=== PATIENT | female | born 1930 | race Caucasian/White ===

== ENCOUNTER 2016-10-17 09:49 | Emergency (ER) | payer MEDICARE, OTHER ==
[2016-10-17] MEDS ORDERED: Sodium Chloride 0.9% 2.5 ML Syringe FLUSH PRN (10:02)
[2016-10-17] MEDS ORDERED: Sodium Chloride 0.9% 10 ML Syringe FLUSH PRN (10:02)
[2016-10-17] MEDS ORDERED: Sodium Chloride 0.9% 1,000 ML IV ONE (10:02)
--- NOTE | 2016-10-17 10:15 | EDM.PDOC ---
ED HISTORY OF PRESENT ILLNESS - General Chief Complaint: Cardiovascular Problem Stated Complaint: UNK Time Seen by Provider: 10/17/16 09:49 - History of Present Illness INITIAL COMMENTS - FREE TEXT/NARRATIVE: HISTORY AND PHYSICAL: History of present illness: The patient is 86-year-old female who lives at home with her son and has a history of diabetes insulin requiring, hypertension hypercholesterolemia and a valve replacement who was found by her son approximately one hour before calling the ambulance with respiratory distress and decreased level of consciousness. This incision a normal day yesterday per her and had no systemic complaints and was fine this morning when he last saw her when he came home he noticed that she was unresponsive. She had no trauma and he called EMS. EMS brought her here emergently and was bagging her on arrival. The patient is unable to offer any history and is unresponsive to voice and painful stimuli. Review of systems: As per history of present illness and below otherwise all systems reviewed and negative. Past medical history: As per history of present illness and as reviewed below otherwise noncontributory. Surgical history: As per history of present illness and as reviewed below otherwise noncontributory. Social history: No reported history of drug or alcohol abuse. Family history: As per history of present illness and as reviewed below otherwise noncontributory. Physical exam: General: Well-developed well-nourished female was unresponsive and vital signs were noted by me. She is not responding to painful stimuli or voice and is only moving her left great toe and her left hand spontaneously and that is just wiggling the fingers and the toe. She is noted to be very hypertensive on arrival HEENT: Atraumatic, normocephalic, are deviated to the left and are relatively sluggish to nonreactive and her mid range,, negative for conjunctival pallor or scleral icterus, mucous membranes moist, throat clear, neck supple, nontender, trachea midline. Lungs: Clear to auscultation with spontaneous breathing but no gag reflex and there are coarse breath sounds bilaterally, there is a well-healed midline midsternotomy incision, breath sounds equal bilaterally, chest nontender. Heart: S1S2, regular, negative for clicks, rubs, or JVD. Abdomen: Soft, nondistended. There is tympany on percussion and she has a rotund abdomen but there are no palpable masses Negative for masses or hepatosplenomegaly. Negative for costovertebral tenderness. Pelvis: Stable nontender. Genitourinary: Deferred. Rectal: Deferred. Extremities: Atraumatic, there are no palpable bony defects and no soft tissue swelling is appreciated Neurovascular unremarkable. Neuro: I cannot assess her neuro status as she is unresponsive and unable to follow commands. The only movement that is spontaneous as documented above Skin turgor is diminished slightly and she is pale overall but there are no overt rashes appreciated Diagnostics: EKG CBC CMP INR lactic acid troponin UA chest x-ray Therapeutics: IV fluid 02 monitor please see code sheet for medications When the patient arrived she was breathing spontaneously but more agonal breathing and she was intubated by anesthesia without complication. After anesthesia intubated her she immediately started to betsy down and lose her pulse. CPR was started and the code was run per protocol. After CPR was performed at the atropine were given and the patient did regain a pulse. I proceeded to talk to Dr. Giles in the ER at [facility] at 10:02 AM and he accepted the patient for transfer. Right TM is on standby and we will continue to perform procedures appropriate pending discussion with the family. I initially spoke with the patient's son who wanted everything done which we have honor those wishes. 1008: Patient is proceeded to lose her pulse again and at the atropine were given CPR was performed and her pulse is back. I will discuss with the family as I think this will be an ongoing process of losing her pulse and regaining her pulse and decide with them with her I point is either transferred to [place] or conservative management and comfort measures. I did discuss with both sons the options if the patient lost her pulse again and they have decided that they would like to do no more CPR and the electrical comfortably. Patient and family were together until she was pronounced at 10:43 AM. Impression: Acute respiratory distress/cardiopulmonary arrest Definitive disposition and diagnosis as appropriate pending reevaluation and review of above. - Related Data Allergies/ADRs: Allergies Allergy/AdvReac Type Severity Reaction Status Date / Time No Known Allergies Allergy Verified 10/17/16 10:38 Home Meds: Home Meds Aspirin [Ecotrin] 81 mg PO QAM 06/18/15 [History] Carvedilol [Coreg] 12.5 mg PO BID 06/18/15 [History] Cranberry Conc/C/Bacill Coag [Cranberry Tablet] 84 mg PO BID 06/18/15 [History] Furosemide [Lasix] 20 mg PO DAILY 06/18/15 [History] Glimepiride [Amaryl] 4 mg PO WITHBREAKFAST 06/18/15 [History] Insulin Glarg,Human.Rec.Analog [Lantus] 40 unit SUBCUT QAM 06/18/15 [History] Ramipril [Altace] 5 mg PO BID 06/18/15 [History] atorvaSTATin [Lipitor] 20 mg PO BEDTIME 06/18/15 [History] Sulfamethoxazole/Trimethoprim [Bactrim Ds Tablet] 1 each PO Q12HR #20 tablet [Rx] Past Medical History Other Musculoskeletal History: fx rib - Past Surgical History Other Cardiovascular Surgeries/Procedures: artificial valve replacement Social & Family History - Tobacco Use Smoking Status *Q: Former Smoker Used Tobacco, but Quit: Yes Month Tobacco Last Used: 1979 Second Hand Smoke Exposure: No - Recreational Drug Use Recreational Drug Use: No ED ROS GENERAL - Review of Systems Review Of Systems: ROS reveals no pertinent complaints other than HPI. ED EXAM, GENERAL - Physical Exam Exam: See Below (See dictation) Course - Vital Signs Last Recorded V/S: Last Vital Signs Temp 36.1 C 10/17/16 10:30 Pulse 96 10/17/16 10:30 Resp 18 10/17/16 10:30 BP 203/118 H 10/17/16 10:30 Pulse Ox 80 L 10/17/16 10:30 - Orders/Labs/Meds Orders: Active Orders 24 hr Category Date Time Status Cardiac Monitoring [RC] . DIRECTED Care 10/17/16 10:01 Active EKG Documentation Completion [RC] STAT Care 10/17/16 10:01 Active Oxygen Therapy, ED [RC] ASDIRECTED Care 10/17/16 10:01 Active Pulse Oximetry [RC] ASDIRECTED Care 10/17/16 10:01 Active CULTURE URINE [RM] Stat Lab 10/17/16 10:02 Uncollected UA W/MICROSCOPIC [URIN] Stat Lab 10/17/16 10:02 Uncollected Sodium Chloride 0.9% [Normal Saline] 1,000 ml Med 10/17/16 10:02 Active IV STAT Sodium Chloride 0.9% [Saline Flush] Med 10/17/16 10:02 Active 10 ml FLUSH ASDIRECTED PRN Sodium Chloride 0.9% [Saline Flush] Med 10/17/16 10:02 Active 2.5 ml FLUSH ASDIRECTED PRN Saline Lock Insert [OM.PC] Stat Oth 10/17/16 10:01 Ordered Medication Orders Sodium Chloride (Normal Saline) 1,000 mls @ 999 mls/hr IV STAT ONE Stop: 10/17/16 11:02 Sodium Chloride (Saline Flush) 10 ml FLUSH ASDIRECTED PRN PRN Reason: Keep Vein Open Sodium Chloride (Saline Flush) 2.5 ml FLUSH ASDIRECTED PRN PRN Reason: Keep Vein Open Labs: Laboratory Tests 10/17/16 10/17/16 10/17/16 Range/Units 09:52 09:52 09:52 WBC 11.13 H (4.0-11.0) K/uL RBC 4.27 L (4.30-5.90) M/uL Hgb 12.2 (12.0-16.0) g/dL Hct 38.4 (36.0-46.0) % MCV 89.9 (80.0-98.0) fL MCH 28.6 (27.0-32.0) pg MCHC 31.8 (31.0-37.0) g/dL RDW Std Deviation 47.9 (28.0-62.0) fl RDW Coeff of Ruthann 15 (11.0-15.0) % Plt Count 164 (150-400) K/uL MPV 9.80 (7.40-12.00) fL Add Manual Diff YES Neutrophils % (Manual) 79 (48.0-80.0) % Band Neutrophils % 6 % Lymphocytes % (Manual) 12 L (16.0-40.0) % Monocytes % (Manual) 1 (0.0-15.0) % Eosinophils % (Manual) 2 (0.0-7.0) % Nucleated RBC % 0.0 /100WBC Absolute Seg Neuts 8.8 Band Neutrophils # 0.7 Lymphocytes # (Manual) 1.3 Monocytes # (Manual) 0.1 Eosinophils # (Manual) 0.2 Nucleated RBCs # 0 K/uL INR 1.04 (0.86-1.11) ABG pH (7.35-7.45) ABG pCO2 (35-45) mmHG ABG pO2 (75-100) mmHG ABG HCO3 (22-26) mEq/L ABG Total CO2 ABG Base Excess (-2.0-2.0) Lactate 1.5 (0.20-2.00) mmol/L Sodium (136-146) mmol/L Potassium (3.5-5.1) mmol/L Chloride (98-110) mmol/L Carbon Dioxide (21-31) mmol/L BUN (6.0-23.0) mg/dL Creatinine (0.6-1.5) mg/dL Est Cr Clr Drug Dosing mL/min Estimated GFR (MDRD) ml/min Glucose (60-110) mg/dL Calcium (8.8-10.8) mg/dL Total Bilirubin (0.1-1.5) mg/dL AST (5-40) IU/L ALT (8-54) IU/L Alkaline Phosphatase (40-150) Troponin I (0.0-0.29) NG/ML Total Protein (6.0-8.0) g/dL Albumin (3.4-4.8) g/dL Globulin (2.0-3.5) g/dL Albumin/Globulin Ratio (1.3-2.8) 10/17/16 10/17/16 10/17/16 Range/Units 09:52 09:52 10:15 WBC (4.0-11.0) K/uL RBC (4.30-5.90) M/uL Hgb (12.0-16.0) g/dL Hct (36.0-46.0) % MCV (80.0-98.0) fL MCH (27.0-32.0) pg MCHC (31.0-37.0) g/dL RDW Std Deviation (28.0-62.0) fl RDW Coeff of Ruthann (11.0-15.0) % Plt Count (150-400) K/uL MPV (7.40-12.00) fL Add Manual Diff Neutrophils % (Manual) (48.0-80.0) % Band Neutrophils % % Lymphocytes % (Manual) (16.0-40.0) % Monocytes % (Manual) (0.0-15.0) % Eosinophils % (Manual) (0.0-7.0) % Nucleated RBC % /100WBC Absolute Seg Neuts Band Neutrophils # Lymphocytes # (Manual) Monocytes # (Manual) Eosinophils # (Manual) Nucleated RBCs # K/uL INR (0.86-1.11) ABG pH 7.310 L (7.35-7.45) ABG pCO2 31 L (35-45) mmHG ABG pO2 152 H (75-100) mmHG ABG HCO3 16 L (22-26) mEq/L ABG Total CO2 14.6 ABG Base Excess -9.6 L (-2.0-2.0) Lactate (0.20-2.00) mmol/L Sodium 134 L (136-146) mmol/L Potassium 6.1 H (3.5-5.1) mmol/L Chloride 107 (98-110) mmol/L Carbon Dioxide 20 L (21-31) mmol/L BUN 36 H (6.0-23.0) mg/dL Creatinine 1.6 H (0.6-1.5) mg/dL Est Cr Clr Drug Dosing 18.46 mL/min Estimated GFR (MDRD) 30.6 ml/min Glucose 411 H (60-110) mg/dL Calcium 8.2 L (8.8-10.8) mg/dL Total Bilirubin 0.4 (0.1-1.5) mg/dL AST 16 (5-40) IU/L ALT 15 (8-54) IU/L Alkaline Phosphatase 106 (40-150) Troponin I < 0.10 (0.0-0.29) NG/ML Total Protein 6.2 (6.0-8.0) g/dL Albumin 2.9 L (3.4-4.8) g/dL Globulin 3.3 (2.0-3.5) g/dL Albumin/Globulin Ratio 0.9 L (1.3-2.8) Meds: Medications Generic Name Dose Route Start Last Admin Trade Name Freq PRN Reason Stop Dose Admin Sodium Chloride 1,000 mls @ 999 mls/hr 10/17/16 10:02 Normal Saline IV 10/17/16 11:02 STAT ONE Sodium Chloride 10 ml 10/17/16 10:02 Saline Flush FLUSH ASDIRECTED PRN Keep Vein Open Sodium Chloride 2.5 ml 10/17/16 10:02 Saline Flush FLUSH ASDIRECTED PRN Keep Vein Open Departure - Departure Time of Disposition: 10:54 Disposition: 20 Preliminary Cause of *Q: Cardiac arrest Condition: critical Clinical Impression: Acute respiratory distress, Cardiopulmonary arrest Forms: ED Department Discharge - My Orders Last 24 Hours: My Active Orders 10/17/16 10:01 Cardiac Monitoring [RC] . DIRECTED EKG Documentation Completion [RC] STAT Oxygen Therapy, ED [RC] ASDIRECTED Pulse Oximetry [RC] ASDIRECTED Saline Lock Insert [OM.PC] Stat 10/17/16 10:02 CULTURE URINE [RM] Stat UA W/MICROSCOPIC [URIN] Stat Sodium Chloride 0.9% [Normal Saline] 1,000 ml IV STAT Sodium Chloride 0.9% [Saline Flush] 10 ml FLUSH ASDIRECTED PRN Sodium Chloride 0.9% [Saline Flush] 2.5 ml FLUSH ASDIRECTED PRN - Assessment/Plan Last 24 Hours: My Active Orders 10/17/16 10:01 Cardiac Monitoring [RC] . DIRECTED EKG Documentation Completion [RC] STAT Oxygen Therapy, ED [RC] ASDIRECTED Pulse Oximetry [RC] ASDIRECTED Saline Lock Insert [OM.PC] Stat 10/17/16 10:02 CULTURE URINE [RM] Stat UA W/MICROSCOPIC [URIN] Stat Sodium Chloride 0.9% [Normal Saline] 1,000 ml IV STAT Sodium Chloride 0.9% [Saline Flush] 10 ml FLUSH ASDIRECTED PRN Sodium Chloride 0.9% [Saline Flush] 2.5 ml FLUSH ASDIRECTED PRN
--- NOTE | 2016-10-17 10:17 | CR ---
EXAMINATION: Portable chest radiograph. HISTORY: Shortness of breath. FINDINGS: The trachea is midline. The heart is borderline in size. There is an endotracheal tube noted with ti p in the right mainstem bronchus. Left basilar atelectasis and/or infiltrate is noted with a trace l eft pleural effusion. No pneumothorax. Aortic calcifications and median sternotomy wires are noted. Valvular replacement. Osseous structures appear unremarkable. IMPRESSION: 1. Endotracheal tube with tip in the right mainstem bronchus. This could be withdrawn approximately 4 to 5 cm. 2. Cardiomegaly with left basilar atelectasis and/or infiltrate. There is also a central vascular pr ominence, this could represent exacerbation of CHF.
[2016-10-17 10:38] VITALS: BP 203/118
[2016-10-17] MEDS ORDERED: Succinylcholine 200 MG/10 ML MDV ONE (11:00)
== END 2016-10-17 12:10 | disposition expired ==
LOC: MW.ED 09:49
DX: I46.9 Cardiac arrest, cause unspecified (principal); J80 Acute respiratory distress syndrome; I10 Essential (primary) hypertension; E11.9 Type 2 diabetes mellitus without complications; E78.5 Hyperlipidemia, unspecified; Z79.4 Long term (current) use of insulin; Z95.2 Presence of prosthetic heart valve; Z87.891 Personal history of nicotine dependence; Z79.899 Other long term (current) drug therapy
CPT/HCPCS: 36415; 36600; 71010; 80053; 81001; 82803; 83605; 84484; 85025; 85610; 87086; 87088; 87186; 92950; 93005; 99291; J0330; 31500; 99285